=== PATIENT | male | born 1975 | race Caucasian/White ===

== ENCOUNTER 2018-06-04 23:31 | Inpatient (IN) ==
[2018-06-04] MEDS ORDERED: Acetaminophen 325 MG Tablet PO PRN (23:57)
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
[2018-06-05] MEDS ORDERED: ceFAZolin 2 GM Premix Inj 2 GM/50 ML PIGGYBACK IV.SIG ONE ×2 (00:11→09:39)
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
[2018-06-05] MEDS ORDERED: fentaNYL Citrate Inj 100 MCG/2 ML Ampul IV.PUSH ONE (03:46)
[2018-06-05] MEDS ORDERED: Chlorhexidine Gluconate 2% 1 Pack (2 Cloths) TOPICAL SCH ×2 (04:00→09:16)
[2018-06-05] MEDS ORDERED: Chlorhexidine Gluconate 2% 1 Pack (2 Cloths) TOPICAL PRN (04:00)
[2018-06-05] MEDS ORDERED: Metoprolol Tartrate 25 MG Tablet PO SCH (09:16)
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
[2018-06-05] MEDS ORDERED: Sodium Chlor 0.9% Inj 500 ML IV.SIG SCH (10:00)
[2018-06-05] MEDS ORDERED: Bupivacaine/Epinephrine PF Inj 0.5% 10 ML Vial ONE (10:09)
[2018-06-05] MEDS ORDERED: Propofol Inj 500 MG/50 ML Vial ONE (10:23)
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
[2018-06-05] MEDS ORDERED: Post-op Orders (for Pharmacy) OTHER STA (10:46)
--- NOTE | 2018-06-05 10:56 | P.OP ---
- Preoperative Diagnosis (1) Fracture of tibial plateau, closed (2) Distal radius fracture, right Date of procedure: 06/05/18 Procedure: Open reduction internal fixation intra-articular right distal radius fracture, closed reduction and external fixation left tibial plateau Anesthesia: GETA Surgeon: Vishal Vieira MD Medical Doctor Md: YURI Paul PA-C The surgical procedure was assisted by my physician materials assistant. My P.A. presence was necessary throughout this case for the manipulation and positioning of the surgical extremity. My P.A. was assisting me throughout the duration of this procedure. The skill set of a physician materials assistant was medically necessary to complete this procedure. During the surgical case the legal technician was working at the back table and the physician materials assistant was directly assisting me. Operation and Findings: Implants used: ITS distal radius plate, Orthofix external fixation Plan of activity: Nonweightbearing right arm and left leg Details of procedure: Patient was seen and evaluated preoperatively and found to have a displaced right distal radius fracture and comminuted left tibial plateau fracture. Patient had too much soft tissue swelling around his knee to proceed with definitive open reduction internal fixation. Informed consent was obtained after detailed discussion of risk and benefits including bleeding, infection, injury to arteries, nerves, and blood vessels, weakness and numbness of hand, and tendon rupture. Informed consent was obtained. Patient received IV antibiotics prior to incision. Timeout procedure was performed. Right arm and left leg were prepped with alcohol followed by Hibiclens and draped usual sterile fashion. A standard volar approach to the right distal radius was utilized. A 3 inch incision was made over the FCR tendon. Tendon sheath was opened. Pronator quadratus was elevated up. The fracture site was now visualized. The fracture did have intra-articular extension. Traction was applied. The articular surface was reduced. Fracture fragments were manipulated to achieve excellent reduction. K wires were used to hold provisional fixation. Fluoroscopy confirmed appropriate alignment of fracture. A variable angle distal radius plate was selected. Plate was provisionally fixed to bone with K wires. 2.7 and 2.4 cortical screws were used to compress plate to bone. Fluoroscopy confirmed appropriate alignment of fracture with well-placed hardware. Multiple 2.4 locking screws were now placed distally. Screws were predrilled and measured for appropriate length. 2 additional screws were placed into the shaft. K wires were removed. Final fluoroscopy revealed excellent of fracture with well-placed hardware. The wound was thoroughly irrigated with sterile saline. Subcutaneous tissue was closed with 3-0 Vicryl and skin was closed with 3-0 nylon. Sterile dressings were applied with Xeroform, 4 x 4, soft roll , and a well padded volar splint. Next attention was turned towards the left tibial plateau. Two small incisions were made along the anterior femur and the tibia. Soft tissue was dissected bluntly. Cannulas were placed down to the cortex of bone. Pin sites were predrilled. External fixation pins were placed into the femur and tibia. Fluoroscopy was used to confirm appropriate pin placement. An external fixator construct was now created with clamps and bars. Next attention was turned to reduction. Traction was applied. Fracture was manipulated. Good alignment of the fracture was obtained. Fluoroscopy was used to confirm appropriate alignment of fracture. The external fixator was now tightened to hold reduction. Sterile dressings were applied. Patient was transferred to recovery room in stable condition. Patient is scheduled for surgery on his right eye injury later today. The soft tissue was reevaluated. Patient did have swelling around the knee and calf but compartments were soft and compressible with no signs of compartment syndrome.
[2018-06-05] MEDS ORDERED: Propofol 1000 mg/100 ml Inj 1,000 MG/100 ML BOTTLE ONE (10:57)
--- NOTE | 2018-06-05 11:04 | XR ---
EXAM DATE: 06/05/2018 10:57 AM EST AGE/SEX: 42 years / Male INDICATIONS: Orif right wrist. CLINICAL DATA: This is the patient's subsequent encounter. Patient reports that signs and symptoms h ave been present for 2 days and indicates a pain score of Nonresponsive. MEDICAL/SURGICAL HISTORY: None. None. COMPARISON: No prior exams available for comparison. FINDINGS: Intraoperative examination demonstrates plating of the distal radial fracture. Alignment of the artic ular surface is good. There is no evidence of consultation. Note is made of an ulnar styloid fracture as well. CONCLUSION: Very good alignment of the patient's comminuted radial fracture post plating. Electronically signed by: Nilo Gaspar MD 06/05/2018 11:02 AM EST
[2018-06-05] MEDS ORDERED: fentaNYL Citrate Inj 100 MCG/2 ML Ampul ONE ×2 (11:19→14:44)
[2018-06-05] MEDS ORDERED: *morphine SULFATE 4 MG/ML PERIprocedure ONLY ONE ×2 (11:45→16:41)
[2018-06-05] MEDS ORDERED: Balanced Salt Opth Irrigation 15 APPLIC/15 ML Bottle ONE (11:56)
[2018-06-05] MEDS: Ketorolac Inj 30 MG/ML (IVP) Vial IV.PUSH SCH ×2 (12:00→20:55)
[2018-06-05] MEDS ORDERED: Lidocaine PF 1% Inj 5 ML Syringe INFILTRATN ONE (12:25)
[2018-06-05] MEDS ORDERED: Tobramycin/Dexamethasone Opth Drops 5 ML Bottle ONE (12:42)
[2018-06-05] MEDS ORDERED: Sugammadex Inj 200 MG/2 ML Vial IV.PUSH ONE (12:43)
--- NOTE | 2018-06-05 14:28 | P.OP ---
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 Patient was put under general anesthesia and prepped and draped in the usual sterile fashion for ophthalmic surgery. A wire lid speculum was placed in the right eye. The lateral conjunctiva had a hematoma so a conjunctival peritomy was done from 6 to 12 o'clock. The eye was noted to be soft but an obvious anterior rupture was not seen. The lateral rectus muscle was isolated and a 6-0 Vicryl suture was used to sharon the muscle and this was disconnected from the insertion. A 10 mm rupture was seen about 12 mm posterior to the muscle insertion. A 6-0 silk suture passed through the lateral cornea to provide traction. 7-0 Vicryl was used to close the laceration. The eye was reformed with Ocucoat and BSS. The wound was found to be watertight. The lateral rectus was reattached with the 6-0 Vicryl. The conjunctiva was closed with 7-0 Vicryl. Subconjunctival Decadron and Ancef were injected. Tobradex ointment, a patch, and shield were placed on the right eye. The patient was sent to PACU in stable condition.
--- NOTE | 2018-06-05 14:31 | P.PN ---
Subjective Interval history: s/p repair of ruptured globe OD. In PACU. Physical Exam Vital signs: Vital Signs 06/04/18 23:54 06/05/18 04:30 06/05/18 07:13 Temperature 98.4 F 98 F Pulse Rate 85 76 82 Respiratory Rate 18 15 20 Blood Pressure 135/90 128/66 132/89 Pulse Oximetry 97 98 06/05/18 11:00 06/05/18 11:10 06/05/18 11:15 Temperature 97.7 F 97.7 F Pulse Rate 67 69 Respiratory Rate 14 20 14 Blood Pressure 122/72 144/85 H Pulse Oximetry 100 100 100 06/05/18 11:30 06/05/18 11:45 06/05/18 12:00 Temperature 97.7 F 97.7 F 97.7 F Pulse Rate 68 66 66 Respiratory Rate 14 14 14 Blood Pressure 147/95 H 150/95 H 159/97 H Pulse Oximetry 100 100 100 Intake & Output 06/04/18 06/05/18 06/05/18 18:59 06:59 18:59 Intake Total 50 / 50 650 / 650 Output Total 1413 / 1413 Balance 50 / 50 -763 / -763 Weight 97.522 kg Intake: IV 50 / 50 250 / 250 LR 1000 mL Inj 1,000 ML @ 100 200 / 200 mls/hr IV.CONT .Q10H [facility] Rx#: [id number] Ancef 2 GM Premix Inj 2 gm In 50 / 50 50 / 50 50 ml @ 0 mls/hr IV.SIG .STK- MED ONE Rx#:[id number] Anesthesia Amount 400 / 400 Output: Estimated Blood Loss 63 / 63 Urine Amount (Catheter) 1350 / 1350 Indwelling Urethral Catheter 1350 / 1350 - Detailed Eye Exam Comments: Eye patch and shield over right eye - Urinary Catheter Management Indwelling Urethral Catheter Cath placed during this visit: yes Reason for continuing: Other continuation reason Insertion date: 06/05/18 Insertion time: 11:25 Results - Labs Laboratory Results - last 24 hr 06/05/18 11:13 POC Glucose 162 H - Imaging Impressions Knee CT 06/05/18 00:00 CONCLUSION: Shattered tibial plateau with relatively mild displacement of fragments Orbit CT 06/05/18 00:00 CONCLUSION: Scan appearance worrisome for rupture of the right globe Wrist X-Ray 06/05/18 00:00 CONCLUSION: Very good alignment of the patient's comminuted radial fracture post plating. 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 Keep patch on right eye. Will remove tomorrow morning.
[2018-06-05] MEDS ORDERED: ceFAZolin 1 GM Premix Inj 1 GM/50 ML FROZ.PIGGY IV.SIG ONE (14:45)
[2018-06-05] MEDS: Calcium/Vitamin D 250/125 MG Tablet PO SCH ×2 (16:21→17:21)
--- NOTE | 2018-06-05 16:35 | OTSOAPIP ---
RECEIVED OCCUPATIONAL THERAPY ORDER. PATIENT WAS OFF FLOOR FOR SURGERY. WILL FOLLOW UP WITH PATIENT NEXT DAY. INTERDISCIPLINARY COMMUNICATION: REVIEWED ELECTRONIC MEDICAL RECORD Therapist: Ann-Marie Torres OTR/Alysia Signature on file
[2018-06-05] MEDS ORDERED: Tobramycin/Dexamethasone Opth Drops 5 ML Bottle RIGHT EYE SCH (17:00)
[2018-06-05] MEDS ORDERED: ceFAZolin 2 GM Premix Inj 2 GM/50 ML PIGGYBACK IV.SIG SCH (18:00)
[2018-06-05] MEDS: Docusate Sodium 100 MG Capsule PO SCH ×2 (18:17→20:36)
[2018-06-05] MEDS: ceFAZolin 2 GM Premix Inj 2 GM/50 ML PIGGYBACK IV.SIG SCH (21:00)
[2018-06-06 04:34] LABS: Baso % (Auto) 0.1 % (0.0-2.0); Hematocrit 39.9 % (39.0-51.0); Hemoglobin 13.7 gm/dL (13.0-17.0); Lymph # (Auto) 0.7 th/mm3 (1.0-4.8); Lymph % (Auto) 9.4 % (9.0-44.0); Mean Corpuscular HGB Conc 34.3 % (32.0-36.0); Mean Corpuscular Hemoglobin 32.9 pg (27.0-34.0); Mean Corpuscular Volume 96.1 fL (80.0-100.0); Mean Platelet Volume 7.4 fL (7.0-11.0); Mono # (Auto) 0.7 th/mm3 (0.0-0.9); Mono % (Auto) 10.5 % (0.0-8.0); Neut # (Auto) 5.5 th/mm3 (1.8-7.7); Platelet Count 255 th/mm3 (150-450); Red Blood Count 4.16 mil/mm3 (4.50-5.90); Red Cell Distribution Width 13.1 % (11.6-17.2); White Blood Count 6.9 th/mm3 (4.0-11.0)
[2018-06-06 05:05] LABS: Calcium 8.6 mg/dL (8.5-10.1); Carbon Dioxide 30.1 meq/L (21.0-32.0); Potassium 4.1 meq/L (3.5-5.1)
[2018-06-06] MEDS: Ketorolac Inj 30 MG/ML (IVP) Vial IV.PUSH SCH ×3 (05:33→20:45)
[2018-06-06] MEDS: ceFAZolin 2 GM Premix Inj 2 GM/50 ML PIGGYBACK IV.SIG SCH ×2 (05:33→13:19)
--- NOTE | 2018-06-06 06:26 | P.PNOP ---
Subjective Interval history: POD 1 s/p ORIF right wrist s/p exfix left tibial plateau doing well. pain controlled. no new complaints Physical Exam Vital signs: Vital Signs 06/05/18 07:13 06/05/18 11:00 06/05/18 11:10 Temperature 98 F 97.7 F Pulse Rate 82 67 Respiratory Rate 20 14 20 Blood Pressure 132/89 122/72 Pulse Oximetry 98 100 100 06/05/18 11:15 06/05/18 11:30 06/05/18 11:45 Temperature 97.7 F 97.7 F 97.7 F Pulse Rate 69 68 66 Respiratory Rate 14 14 14 Blood Pressure 144/85 H 147/95 H 150/95 H Pulse Oximetry 100 100 100 06/05/18 12:00 06/05/18 14:30 06/05/18 15:03 Temperature 97.7 F 98 F 97.4 F L Pulse Rate 66 79 81 Respiratory Rate 14 18 14 Blood Pressure 159/97 H 152/88 H 159/83 H Pulse Oximetry 100 97 99 06/05/18 15:15 06/05/18 15:30 06/05/18 15:45 Temperature 98 F 98 F 98 F Pulse Rate 84 80 83 Respiratory Rate 18 18 18 Blood Pressure 159/90 H 140/78 156/89 H Pulse Oximetry 99 90 L 96 06/05/18 16:00 06/05/18 16:15 06/05/18 16:45 Temperature 98 F 98 F 98.2 F Pulse Rate 82 80 82 Respiratory Rate 18 18 14 Blood Pressure 158/91 H 160/93 H 166/95 H Pulse Oximetry 97 97 98 06/05/18 17:03 06/05/18 20:00 06/05/18 21:25 Temperature 98 F 97.9 F Pulse Rate 83 83 Respiratory Rate 18 17 17 Blood Pressure 166/97 H 142/77 H Pulse Oximetry 97 94 L 06/05/18 23:15 06/06/18 00:00 06/06/18 04:00 Temperature 97.4 F L 97.8 F Pulse Rate 73 77 Respiratory Rate 17 16 17 Blood Pressure 140/89 140/90 Pulse Oximetry 97 97 Intake & Output 06/05/18 06/05/18 06/06/18 06:59 18:59 06:59 Intake Total 50 / 50 650 / 650 100 / 100 Output Total 1963 / 1963 900 / 900 Balance 50 / 50 -1313 / -1313 -800 / -800 Weight 97.522 kg 97.5 kg 97.5 kg Intake: IV 50 / 50 250 / 250 100 / 100 LR 1000 mL Inj 1,000 ML @ 100 200 / 200 mls/hr IV.CONT .Q10H [facility] Rx#: [id number] Ancef 1 GM Premix Inj 1 gm In 50 / 50 50 ml @ 100 mls/hr IV.SIG ONCE ONE Rx#:[id number] Ancef 2 GM Premix Inj 2 gm In 50 / 50 50 / 50 50 / 50 50 ml @ 100 mls/hr IV.SIG Q8H [facility] Rx#:[id number] Oral 0 / 0 Anesthesia Amount 400 / 400 Output: Urine 550 / 550 900 / 900 Estimated Blood Loss 63 / 63 Urine Amount (Catheter) 1350 / 1350 Indwelling Urethral Catheter 1350 / 1350 Other: # Bowel Movements 0 Weight On Admission 97.5 kg Narrative: RUE: +short arm splint. intact. NVI LLE: 2+ swelling of lower leg. compartments soft. +exfix. pin sites clean. strong dorsiflexion - Urinary Catheter Management Indwelling Urethral Catheter Cath placed during this visit: yes Reason for continuing: Hourly intake/output Insertion date: 06/05/18 Insertion time: 11:25 Results - Labs CBC & Chem 7: 06/06/18 04:03 06/06/18 04:03 Laboratory Results - last 24 hr 06/05/18 06/06/18 06/06/18 11:13 04:03 04:03 WBC 6.9 RBC 4.16 L Hgb 13.7 Hct 39.9 MCV 96.1 MCH 32.9 MCHC 34.3 RDW 13.1 Plt Count 255 MPV 7.4 Neut % (Auto) 80.0 H Lymph % (Auto) 9.4 [place] % (Auto) 10.5 H Eos % (Auto) 0.0 Baso % (Auto) 0.1 Neut # (Auto) 5.5 Lymph # (Auto) 0.7 L [place] # (Auto) 0.7 Eos # (Auto) 0.0 Baso # (Auto) 0.0 WBC Differential . Differential Comment Auto diff final Sodium 139 Potassium 4.1 Chloride 100 Carbon Dioxide 30.1 Anion Gap 9 BUN 19 H Creatinine 1.17 Estimated GFR 68 L POC Glucose 162 H Random Glucose 151 H Calcium 8.6 - Imaging Impressions Wrist X-Ray 06/05/18 00:00 CONCLUSION: Very good alignment of the patient's comminuted radial fracture post plating. Assessment and Plan - Assessment and Plan 1) Right Distal Radius Fx s/p ORIF - POD 1 -maintain splint at all times -NWB to hand and wrist -ok for platform walker 2) Left Bicondylar Tibial Plateau Fx s/p Exfix -NWB -elevate -ice -toradol -will plan for ORIF once swelling appropriate. will not likely be til next week
--- NOTE | 2018-06-06 08:48 | P.PN ---
Subjective Interval history: No pain in right eye. Comfortable overnight. Physical Exam Vital signs: Vital Signs 06/05/18 11:00 06/05/18 11:10 06/05/18 11:15 Temperature 97.7 F 97.7 F Pulse Rate 67 69 Respiratory Rate 14 20 14 Blood Pressure 122/72 144/85 H Pulse Oximetry 100 100 100 06/05/18 11:30 06/05/18 11:45 06/05/18 12:00 Temperature 97.7 F 97.7 F 97.7 F Pulse Rate 68 66 66 Respiratory Rate 14 14 14 Blood Pressure 147/95 H 150/95 H 159/97 H Pulse Oximetry 100 100 100 06/05/18 14:30 06/05/18 15:03 06/05/18 15:15 Temperature 98 F 97.4 F L 98 F Pulse Rate 79 81 84 Respiratory Rate 18 14 18 Blood Pressure 152/88 H 159/83 H 159/90 H Pulse Oximetry 97 99 99 06/05/18 15:30 06/05/18 15:45 06/05/18 16:00 Temperature 98 F 98 F 98 F Pulse Rate 80 83 82 Respiratory Rate 18 18 18 Blood Pressure 140/78 156/89 H 158/91 H Pulse Oximetry 90 L 96 97 06/05/18 16:15 06/05/18 16:45 06/05/18 17:03 Temperature 98 F 98.2 F 98 F Pulse Rate 80 82 83 Respiratory Rate 18 14 18 Blood Pressure 160/93 H 166/95 H 166/97 H Pulse Oximetry 97 98 97 06/05/18 20:00 06/05/18 21:25 06/05/18 23:15 Temperature 97.9 F Pulse Rate 83 Respiratory Rate 17 17 17 Blood Pressure 142/77 H Pulse Oximetry 94 L 06/06/18 00:00 06/06/18 04:00 Temperature 97.4 F L 97.8 F Pulse Rate 73 77 Respiratory Rate 16 17 Blood Pressure 140/89 140/90 Pulse Oximetry 97 97 Intake & Output 06/05/18 06/06/18 06/06/18 18:59 06:59 18:59 Intake Total 650 / 650 150 / 150 Output Total 1963 / 1963 900 / 900 Balance -1313 / -1313 -750 / -750 Weight 97.5 kg 97.5 kg Intake: IV 250 / 250 150 / 150 LR 1000 mL Inj 1,000 ML @ 100 200 / 200 mls/hr IV.CONT .Q10H [facility] Rx#: [id number] Ancef 1 GM Premix Inj 1 gm In 50 / 50 50 ml @ 100 mls/hr IV.SIG ONCE ONE Rx#:[id number] Ancef 2 GM Premix Inj 2 gm In 50 / 50 100 / 100 50 ml @ 100 mls/hr IV.SIG Q8H [facility] Rx#:[id number] Oral 0 / 0 Anesthesia Amount 400 / 400 Output: Urine 550 / 550 900 / 900 Estimated Blood Loss 63 / 63 Urine Amount (Catheter) 1350 / 1350 Indwelling Urethral Catheter 1350 / 1350 Other: # Bowel Movements 0 Weight On Admission 97.5 kg - Detailed Eye Exam Comments: Va cc at near OD CF 6 in, OS 20/20 EOM full OU, no diplopia CVF full OS, unable OD Pupils 2-1 OS, 4 mm fixed OD IOP deferred Anterior exam OD - eyelid edema and ecchymoses, conj sutures intact, K clear, AC deep, pupil round, lens clear OS - normal eyelid, C/S W&Q, K clear, AC deep, pupil round, lens clear - Urinary Catheter Management Indwelling Urethral Catheter Cath placed during this visit: yes Reason for continuing: Hourly intake/output Insertion date: 06/05/18 Insertion time: 11:25 Results - Labs CBC & Chem 7: 06/06/18 04:03 06/06/18 04:03 Laboratory Results - last 24 hr 06/05/18 06/06/18 06/06/18 11:13 04:03 04:03 WBC 6.9 RBC 4.16 L Hgb 13.7 Hct 39.9 MCV 96.1 MCH 32.9 MCHC 34.3 RDW 13.1 Plt Count 255 MPV 7.4 Neut % (Auto) 80.0 H Lymph % (Auto) 9.4 [place] % (Auto) 10.5 H Eos % (Auto) 0.0 Baso % (Auto) 0.1 Neut # (Auto) 5.5 Lymph # (Auto) 0.7 L [place] # (Auto) 0.7 Eos # (Auto) 0.0 Baso # (Auto) 0.0 WBC Differential . Differential Comment Auto diff final Sodium 139 Potassium 4.1 Chloride 100 Carbon Dioxide 30.1 Anion Gap 9 BUN 19 H Creatinine 1.17 Estimated GFR 68 L POC Glucose 162 H Random Glucose 151 H Calcium 8.6 - Imaging Impressions Wrist X-Ray 06/05/18 00:00 CONCLUSION: Very good alignment of the patient's comminuted radial fracture post plating. 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 Start Prednisolone acetate 1% QID OD, Vigamox QID OD. Discussed poor prognosis of recovering full vision with posterior rupture. Follow up as outpatient once discharged. 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
--- NOTE | 2018-06-06 09:12 | XR ---
EXAM DATE: 06/05/2018 12:28 PM EST AGE/SEX: 42 years / Male INDICATIONS: EX Fix placement left knee. CLINICAL DATA: This is the patient's subsequent encounter. Patient reports that signs and symptoms h ave been present for 2 days and indicates a pain score of Nonresponsive. MEDICAL/SURGICAL HISTORY: None. None. COMPARISON: No prior exams available for comparison. FINDINGS: 2 intraoperative spot images of the left knee. Tibial plateau fracture is identified involving the me dial and lateral tibial condyles. CONCLUSION: Tibial plateau fracture identified. Electronically signed by: Adán Gamboa MD 06/06/2018 9:10 AM EST
[2018-06-06] MEDS: guanFACINE 2 MG 24HR ER Tablet PO SCH (10:00)
[2018-06-06] MEDS: Calcium/Vitamin D 250/125 MG Tablet PO SCH ×3 (10:00→18:49)
[2018-06-06] MEDS: Citalopram 20 MG Tablet PO SCH (10:00)
[2018-06-06] MEDS: Enoxaparin Inj 40 MG/0.4 ML Syringe SQ SCH (10:00)
[2018-06-06] MEDS: Fenofibrate 48 MG Tablet PO SCH (10:01)
[2018-06-06] MEDS: Docusate Sodium 100 MG Capsule PO SCH ×2 (10:01→20:44)
[2018-06-06] MEDS: prednisoLONE Acetate 1% Opth Susp 5 ML Bottle RIGHT EYE SCH ×4 (11:00→20:49)
[2018-06-06] MEDS: Moxifloxacin 0.5% Opth Drops 3 ML Bottle RIGHT EYE SCH ×4 (11:00→20:49)
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
[2018-06-07] MEDS: Ketorolac Inj 30 MG/ML (IVP) Vial IV.PUSH SCH (04:45)
--- NOTE | 2018-06-07 07:28 | P.DCO ---
- Physical Therapy Order: Evaluate and treat, Improve ambulation, Strength and gait training - Home Health Nursing Order: Medical education, Signs/symptoms of disease process, Medication education-adverse effect, Nursing assessment with vital signs - Case Management Consult Yes - Certification I have seen patient Slim Forde on 06/07/18. My clinical findings support the need for the requested home health care services because: Limited mobility due to disease progression, Deconditioned with increased weakness, Limited ability to care for self, High risk of falls I certify that my clinical findings support that this patient is homebound because: Post-op weakness, Unsteady gait/balance, Unsafe to leave home unassisted, Non- ambulatory: confined to bed or chair, Unable to use public transportation
--- NOTE | 2018-06-07 07:57 | P.PNOP ---
Subjective Interval history: Resting comfortably with no new complaints Physical Exam Vital signs: Vital Signs 06/06/18 08:00 06/06/18 09:45 06/06/18 12:00 Temperature 98.5 F 98.2 F Pulse Rate 78 82 Respiratory Rate 18 18 Blood Pressure 148/89 H 134/79 Pulse Oximetry 100 98 98 06/06/18 16:00 06/06/18 16:30 06/06/18 20:15 Temperature 98.7 F 98.9 F 98.5 F Pulse Rate 84 81 74 Respiratory Rate 16 18 19 Blood Pressure 109/61 125/72 126/64 Pulse Oximetry 96 97 98 06/06/18 21:25 06/07/18 00:00 06/07/18 04:00 Temperature 98.3 F 98.4 F Pulse Rate 82 72 Respiratory Rate 18 18 18 Blood Pressure 128/69 128/74 Pulse Oximetry 94 L 95 06/07/18 04:44 Temperature Pulse Rate Respiratory Rate 18 Blood Pressure Pulse Oximetry Intake & Output 06/06/18 06/07/18 06/07/18 18:59 06:59 18:59 Intake Total 150 / 150 Output Total 1100 / 1100 625 / 625 Balance -1100 / -1100 -625 / -625 150 / 150 Intake: IV 150 / 150 Output: Urine 600 / 600 625 / 625 Urine Amount (Catheter) 500 / 500 Indwelling Urethral Catheter 500 / 500 Other: Date of Last Bowel Movement 06/06/18 Narrative: Right upper extremity: No pain with shoulder elbow range of motion. Short arm volar splint in place. Intact sensation over the radial ulnar median nerve full extension and flexion of all fingers. He has good capillary refills. Left lower extremity: No pain with hip range of motion. External fixation in place. Pin sites clean and dry. Swelling has improved slightly. Still continues have swelling of +3. He has intact sensation distally with active dorsiflexion plantarflexion of foot. Negative Homans sign - Urinary Catheter Management Indwelling Urethral Catheter Cath placed during this visit: yes, but has since been removed by the nurse Reason for continuing: Not indwelling catheter Insertion date: 06/05/18 Insertion time: 11:25 Removal date: 06/06/18 Removal time: 13:43 Results - Labs CBC & Chem 7: 06/06/18 04:03 06/06/18 04:03 - Imaging Impressions Knee X-Ray 06/05/18 00:00 CONCLUSION: Tibial plateau fracture identified. Assessment and Plan - Assessment and Plan 1) Right Distal Radius Fx s/p ORIF - POD 2 -maintain splint at all times -NWB to hand and wrist -ok for platform walker 2) Left Bicondylar Tibial Plateau Fx s/p Exfix -NWB -elevate -ice -toradol -N.p.o. after midnight on Sunday night. If swelling has improved potential surgery on Sunday. Hold Lovenox after Sunday's dose. Pin care twice daily
[2018-06-07] MEDS: Enoxaparin Inj 40 MG/0.4 ML Syringe SQ SCH (09:28)
[2018-06-07] MEDS: Citalopram 20 MG Tablet PO SCH (09:30)
[2018-06-07] MEDS: Calcium/Vitamin D 250/125 MG Tablet PO SCH ×3 (09:30→17:49)
[2018-06-07] MEDS: Docusate Sodium 100 MG Capsule PO SCH ×2 (09:30→22:04)
[2018-06-07] MEDS: Moxifloxacin 0.5% Opth Drops 3 ML Bottle RIGHT EYE SCH ×4 (09:37→22:03)
[2018-06-07] MEDS: prednisoLONE Acetate 1% Opth Susp 5 ML Bottle RIGHT EYE SCH ×4 (09:37→22:03)
[2018-06-07] MEDS: guanFACINE 2 MG 24HR ER Tablet PO SCH (11:36)
[2018-06-07] MEDS: Fenofibrate 48 MG Tablet PO SCH (11:37)
--- NOTE | 2018-06-07 11:40 | P.PN ---
Subjective Interval history: Right eye is comfortable. A little scratchy when he blinks. It gets matted shut , especially in the mornings. Physical Exam Vital signs: Vital Signs 06/06/18 12:00 06/06/18 16:00 06/06/18 16:30 Temperature 98.2 F 98.7 F 98.9 F Pulse Rate 82 84 81 Respiratory Rate 18 16 18 Blood Pressure 134/79 109/61 125/72 Pulse Oximetry 98 96 97 06/06/18 20:15 06/06/18 21:25 06/07/18 00:00 Temperature 98.5 F 98.3 F Pulse Rate 74 82 Respiratory Rate 19 18 18 Blood Pressure 126/64 128/69 Pulse Oximetry 98 94 L 06/07/18 04:00 06/07/18 04:44 06/07/18 08:00 Temperature 98.4 F 97.9 F Pulse Rate 72 66 Respiratory Rate 18 18 20 Blood Pressure 128/74 142/88 H Pulse Oximetry 95 98 06/07/18 11:37 Temperature Pulse Rate Respiratory Rate 16 Blood Pressure Pulse Oximetry Intake & Output 06/06/18 06/07/18 06/07/18 18:59 06:59 18:59 Intake Total 150 / 150 Output Total 1100 / 1100 625 / 625 Balance -1100 / -1100 -625 / -625 150 / 150 Intake: IV 150 / 150 Output: Urine 600 / 600 625 / 625 Urine Amount (Catheter) 500 / 500 Indwelling Urethral Catheter 500 / 500 Other: Date of Last Bowel Movement 06/06/18 06/06/18 - Detailed Eye Exam Comments: Va sc at near OD 20/400, OS 20/20 EOM full OU, no diplopia CVF full OS Pupils 3-2, 2-1 IOP 6 OD, 15 OS Anterior exam OD - eyelid edema and ecchymoses, conj sutures temporally, K clear, AC deep, pupil round, lens clear OS - normal eyelid, C/S W&Q, K clear, AC deep, pupil round, lens clear - Urinary Catheter Management Indwelling Urethral Catheter Cath placed during this visit: yes, but has since been removed by the nurse Reason for continuing: Acute urinary retention Insertion date: 06/07/18 Insertion time: 10:53 Removal date: 06/06/18 Removal time: 13:43 Results - Labs CBC & Chem 7: 06/06/18 04:03 06/06/18 04:03 Assessment and Plan - Assessment (1) Ruptured globe of right eye with uveal prolapse Code(s): S05.21XA - Ocular laceration and rupture with prolapse or loss of intraocular tissue, right eye, initial encounter Status: Acute Plan: 2 days s/p repair of ruptured globe. Cont Prednisolone acetate 1% QID OD, Vigamox QID OD. Discussed poor prognosis of recovering full vision with posterior rupture. 

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
[2018-06-07] MEDS ORDERED: Dextrose 50% in Water 50 ML Vial IV.PUSH PRN (13:53)
[2018-06-07] MEDS: Ibuprofen 400 MG Tablet PO SCH ×2 (14:54→23:01)
[2018-06-07] MEDS: Insulin NovoLOG Aspart Correctional Sugar Inj SQ SCH ×2 (17:49→22:04)
[2018-06-07] MEDS ORDERED: VASCEPA 1 GM PO SCH (21:00)
[2018-06-08] MEDS ORDERED: Bisacodyl 10 MG Supp RECTAL PRN (04:41)
--- NOTE | 2018-06-08 07:01 | P.PNOP ---
Subjective Interval history: POd 3 s/p ORIF right wrist s/p exfix left tibial pateau doing well. no changes Physical Exam Vital signs: Vital Signs 06/07/18 08:00 06/07/18 11:37 06/07/18 12:00 Temperature 97.9 F 97.7 F Pulse Rate 66 83 Respiratory Rate 20 16 22 Blood Pressure 142/88 H 137/78 Pulse Oximetry 98 95 06/07/18 14:54 06/07/18 15:58 06/07/18 16:00 Temperature 98.6 F Pulse Rate 79 Respiratory Rate 16 16 20 Blood Pressure 144/83 H Pulse Oximetry 96 06/07/18 18:31 06/07/18 19:13 06/08/18 00:08 Temperature 98.0 F 97.3 F L Pulse Rate 82 80 Respiratory Rate 16 18 18 Blood Pressure 126/67 143/81 H Pulse Oximetry 94 L 93 L 06/08/18 04:28 Temperature 97.8 F Pulse Rate 76 Respiratory Rate 18 Blood Pressure 148/80 H Pulse Oximetry 96 Intake & Output 06/07/18 06/08/18 06/08/18 18:59 06:59 18:59 Intake Total 2490 / 2490 720 / 720 Output Total 3000 / 3000 600 / 600 Balance -510 / -510 120 / 120 Weight 107.4 kg Intake: IV 1150 / 1150 Oral 1340 / 1340 720 / 720 Output: Urine 900 / 900 Stool 0 / 0 Urine Amount (Catheter) 2100 / 2100 600 / 600 Indwelling Urethral Catheter 2100 / 2100 600 / 600 Other: Date of Last Bowel Movement 06/06/18 06/06/18 # Bowel Movements 0 Narrative: LLE; 2+ swelling. compartments soft. nvi. +exfix. pin sites clean RUE: +short arm splint. intact. nvi - Urinary Catheter Management Indwelling Urethral Catheter Cath placed during this visit: yes, but has since been removed by the nurse Reason for continuing: Acute urinary retention Insertion date: 06/07/18 Insertion time: 10:53 Removal date: 06/06/18 Removal time: 13:43 Results - Labs CBC & Chem 7: 06/06/18 04:03 06/06/18 04:03 Laboratory Results - last 24 hr 06/07/18 06/07/18 17:28 20:48 POC Glucose 170 H 177 H Assessment and Plan - Assessment and Plan 1) Right Distal Radius Fx s/p ORIF - POD 3 -maintain splint at all times -NWB to hand and wrist -ok for platform walker 2) Left Bicondylar Tibial Plateau Fx s/p Exfix -NWB -elevate -ice -toradol -N.p.o. after midnight on Sunday night. If swelling has improved potential surgery on Sunday. Hold Lovenox after Sunday's dose. Pin care twice daily
[2018-06-08] MEDS: Ibuprofen 400 MG Tablet PO SCH ×3 (07:41→23:31)
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
[2018-06-08] MEDS ORDERED: Non-Formulary Drug (Losartan-Hydrochlorothiazide [Losartan-Hydrochlorothiazide] 1 TAB) PO SCH (09:00)
[2018-06-08] MEDS ORDERED: GUANFACINE 4 MG PO SCH (09:00)
[2018-06-08] MEDS: Docusate Sodium 100 MG Capsule PO SCH ×2 (09:17→20:22)
[2018-06-08] MEDS: Citalopram 20 MG Tablet PO SCH (09:17)
[2018-06-08] MEDS: Fenofibrate 145 MG Tablet PO SCH (09:17)
[2018-06-08] MEDS: Enoxaparin Inj 40 MG/0.4 ML Syringe SQ SCH (09:18)
[2018-06-08] MEDS: prednisoLONE Acetate 1% Opth Susp 5 ML Bottle RIGHT EYE SCH ×4 (09:18→21:55)
[2018-06-08] MEDS: Calcium/Vitamin D 250/125 MG Tablet PO SCH ×3 (09:18→18:56)
[2018-06-08] MEDS: Insulin NovoLOG Aspart Correctional Sugar Inj SQ SCH ×4 (09:19→20:24)
[2018-06-08] MEDS: Moxifloxacin 0.5% Opth Drops 3 ML Bottle RIGHT EYE SCH ×3 (13:03→21:55)
[2018-06-09] MEDS: Ibuprofen 400 MG Tablet PO SCH ×3 (06:37→21:04)
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
[2018-06-09] MEDS: Calcium/Vitamin D 250/125 MG Tablet PO SCH ×3 (09:07→19:04)
[2018-06-09] MEDS: Citalopram 20 MG Tablet PO SCH (09:07)
[2018-06-09] MEDS: Docusate Sodium 100 MG Capsule PO SCH ×2 (09:07→21:05)
[2018-06-09] MEDS: Insulin NovoLOG Aspart Correctional Sugar Inj SQ SCH ×4 (09:49→22:55)
[2018-06-09] MEDS: prednisoLONE Acetate 1% Opth Susp 5 ML Bottle RIGHT EYE SCH ×4 (09:51→21:04)
[2018-06-09] MEDS: Moxifloxacin 0.5% Opth Drops 3 ML Bottle RIGHT EYE SCH ×4 (09:51→21:04)
[2018-06-09] MEDS ORDERED: Bisacodyl 10 MG Supp RECTAL ONE (10:39)
[2018-06-09] MEDS: Enoxaparin Inj 40 MG/0.4 ML Syringe SQ SCH (11:30)
[2018-06-09] MEDS: Fenofibrate 145 MG Tablet PO SCH (12:27)
[2018-06-10] MEDS ORDERED: Sodium Chlor 0.9% Inj 500 ML IV.CONT ONE (05:15)
[2018-06-10] MEDS ORDERED: Chlorhexidine Gluconate 2% 1 Pack (2 Cloths) TOPICAL ONE (05:15)
[2018-06-10] MEDS: Ibuprofen 400 MG Tablet PO SCH ×3 (06:19→23:53)
--- NOTE | 2018-06-10 06:30 | P.PNOP ---
Subjective Interval history: POD 5 s/p ORIF right wrist POD 5 s/p exfix left knee doing well. no changes. improving Physical Exam Vital signs: Vital Signs 06/09/18 08:00 06/09/18 09:09 06/09/18 12:00 Temperature 98.1 F 97.9 F Pulse Rate 72 88 79 Respiratory Rate 16 18 Blood Pressure 173/109 H 162/92 H 158/97 H Pulse Oximetry 97 95 06/09/18 16:00 06/09/18 20:00 06/10/18 00:00 Temperature 97.6 F 98.1 F 97.8 F Pulse Rate 75 82 82 Respiratory Rate 18 18 18 Blood Pressure 152/98 H 146/91 H 140/78 Pulse Oximetry 95 95 93 L Intake & Output 06/09/18 06/09/18 06/10/18 06:59 18:59 06:59 Intake Total 680 / 680 480 / 480 320 / 320 Output Total 3300 / 3300 1200 / 1200 Balance -2620 / -2620 -720 / -720 320 / 320 Weight 108.2 kg 106.3 kg Intake: Oral 680 / 680 480 / 480 320 / 320 Output: Urine 3300 / 3300 1200 / 1200 Other: # Voids 1,300 Date of Last Bowel Movement 06/06/18 06/06/18 06/09/18 # Bowel Movements 2 Narrative: LLE: +exfix. pin sites clean. swelling 1+ and improving. compartments soft RUE: +splint. intact. nvi - Urinary Catheter Management Indwelling Urethral Catheter Cath placed during this visit: yes, but has since been removed by the nurse Reason for continuing: Acute urinary retention Insertion date: 06/07/18 Insertion time: 10:53 Removal date: 06/06/18 Removal time: 13:43 Results - Labs CBC & Chem 7: 06/06/18 04:03 06/06/18 04:03 Laboratory Results - last 24 hr 06/09/18 06/09/18 06/09/18 09:48 12:03 17:19 POC Glucose 192 H 154 H 127 H 06/09/18 21:14 POC Glucose 175 H Assessment and Plan - Assessment and Plan 1) Right Distal Radius Fx s/p ORIF - POD 5 -maintain splint at all times -NWB to hand and wrist -ok for platform walker 2) Left Bicondylar Tibial Plateau Fx s/p Exfix -NWB -elevate -ice -toradol -resume diet today -NPO after MN -one time dose of lovenox this AM -plan for surgery tomorrow
[2018-06-10] MEDS ORDERED: Enoxaparin Inj 30 MG/0.3 ML Syringe SQ ONE (06:31)
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
[2018-06-10] MEDS: Fenofibrate 145 MG Tablet PO SCH (08:22)
[2018-06-10] MEDS: Docusate Sodium 100 MG Capsule PO SCH ×2 (08:22→20:51)
[2018-06-10] MEDS: Calcium/Vitamin D 250/125 MG Tablet PO SCH ×3 (08:22→17:05)
[2018-06-10] MEDS: Citalopram 20 MG Tablet PO SCH (08:22)
[2018-06-10] MEDS: Moxifloxacin 0.5% Opth Drops 3 ML Bottle RIGHT EYE SCH ×4 (08:30→20:53)
[2018-06-10] MEDS: prednisoLONE Acetate 1% Opth Susp 5 ML Bottle RIGHT EYE SCH ×4 (08:30→20:53)
[2018-06-10] MEDS: Insulin NovoLOG Aspart Correctional Sugar Inj SQ SCH ×4 (08:33→20:54)
[2018-06-10] MEDS: Gabapentin 300 MG Capsule PO SCH ×2 (12:49→17:05)
[2018-06-11] MEDS: Ibuprofen 400 MG Tablet PO SCH ×3 (05:00→23:03)
[2018-06-11 05:44] LABS: Baso % (Auto) 0.4 % (0.0-2.0); Eos # (Auto) 0.1 th/mm3 (0.0-0.4); Eos % (Auto) 2.9 % (0.0-4.0); Hematocrit 36.7 % (39.0-51.0); Hemoglobin 12.7 gm/dL (13.0-17.0); Lymph # (Auto) 1.3 th/mm3 (1.0-4.8); Lymph % (Auto) 30.2 % (9.0-44.0); Mean Corpuscular HGB Conc 34.7 % (32.0-36.0); Mean Corpuscular Hemoglobin 32.8 pg (27.0-34.0); Mean Corpuscular Volume 94.5 fL (80.0-100.0); Mean Platelet Volume 6.8 fL (7.0-11.0); Mono # (Auto) 0.5 th/mm3 (0.0-0.9); Mono % (Auto) 12.2 % (0.0-8.0); Neut # (Auto) 2.3 th/mm3 (1.8-7.7); Neut % (Auto) 54.3 % (16.0-70.0); Platelet Count 284 th/mm3 (150-450); Red Blood Count 3.88 mil/mm3 (4.50-5.90); Red Cell Distribution Width 12.5 % (11.6-17.2); White Blood Count 4.3 th/mm3 (4.0-11.0)
[2018-06-11 06:08] LABS: Calcium 8.8 mg/dL (8.5-10.1); Carbon Dioxide 30.3 meq/L (21.0-32.0); Potassium 3.7 meq/L (3.5-5.1)
--- NOTE | 2018-06-11 06:48 | P.PNOP ---
Subjective Interval history: POD 7 s/p ORIF right wrist s/p exfix left plateau doing well. pain controlled. Physical Exam Vital signs: Vital Signs 06/10/18 08:00 06/10/18 12:00 06/10/18 16:00 Temperature 97.9 F 98.1 F 97.9 F Pulse Rate 79 78 86 Respiratory Rate 18 18 Blood Pressure 153/96 H 154/98 H 127/89 Pulse Oximetry 94 L 94 L 95 06/10/18 21:10 06/11/18 00:40 06/11/18 05:20 Temperature 97.8 F 98.1 F 97.8 F Pulse Rate 91 H 78 77 Respiratory Rate 18 18 Blood Pressure 138/87 140/89 133/83 Pulse Oximetry 94 L 97 94 L Intake & Output 06/10/18 06/10/18 06/11/18 06:59 18:59 06:59 Intake Total 320 / 320 620 / 620 Output Total 700 / 700 Balance 320 / 320 -80 / -80 Weight 106.3 kg Intake: Oral 320 / 320 620 / 620 Output: Urine 700 / 700 Other: # Voids 1,300 Date of Last Bowel Movement 06/09/18 06/09/18 Narrative: LLE: 1-2+ swelling. compartments soft. +exfix RLE: +splint. intact. - Urinary Catheter Management Indwelling Urethral Catheter Cath placed during this visit: yes, but has since been removed by the nurse Reason for continuing: Acute urinary retention Insertion date: 06/07/18 Insertion time: 10:53 Removal date: 06/06/18 Removal time: 13:43 Results - Labs CBC & Chem 7: 06/11/18 05:09 06/11/18 05:09 Laboratory Results - last 24 hr 06/10/18 06/10/18 06/10/18 08:04 12:05 17:09 WBC RBC Hgb Hct MCV MCH MCHC RDW Plt Count MPV Neut % (Auto) Lymph % (Auto) Worth % (Auto) Eos % (Auto) Baso % (Auto) Neut # (Auto) Lymph # (Auto) Worth # (Auto) Eos # (Auto) Baso # (Auto) WBC Differential Differential Comment Sodium Potassium Chloride Carbon Dioxide Anion Gap BUN Creatinine Estimated GFR POC Glucose 124 H 170 H 132 H Random Glucose Calcium 06/10/18 06/11/1818 20:02 05:09 05:09 WBC 4.3 RBC 3.88 L Hgb 12.7 L Hct 36.7 L MCV 94.5 MCH 32.8 MCHC 34.7 RDW 12.5 Plt Count 284 MPV 6.8 L Neut % (Auto) 54.3 Lymph % (Auto) 30.2 Worth % (Auto) 12.2 H Eos % (Auto) 2.9 Baso % (Auto) 0.4 Neut # (Auto) 2.3 Lymph # (Auto) 1.3 Worth # (Auto) 0.5 Eos # (Auto) 0.1 Baso # (Auto) 0.0 WBC Differential . Differential Comment Auto diff final Sodium 139 Potassium 3.7 Chloride 99 Carbon Dioxide 30.3 Anion Gap 10 BUN 22 H Creatinine 1.07 Estimated GFR 75 L POC Glucose 170 H Random Glucose 116 H Calcium 8.8 Assessment and Plan - Assessment and Plan 1) Right Distal Radius Fx s/p ORIF - POD 6 -maintain splint at all times -NWB to hand and wrist -ok for platform walker 2) Left Bicondylar Tibial Plateau Fx s/p Exfix -NWB -elevate -ice -surgery today with [facility] -sign consents
[2018-06-11] MEDS: Insulin NovoLOG Aspart Correctional Sugar Inj SQ SCH ×4 (08:00→20:02)
[2018-06-11] MEDS: prednisoLONE Acetate 1% Opth Susp 5 ML Bottle RIGHT EYE SCH ×4 (09:00→20:05)
[2018-06-11] MEDS: Moxifloxacin 0.5% Opth Drops 3 ML Bottle RIGHT EYE SCH ×4 (09:00→20:05)
[2018-06-11] MEDS: Fenofibrate 145 MG Tablet PO SCH (09:00)
[2018-06-11] MEDS: Calcium/Vitamin D 250/125 MG Tablet PO SCH ×3 (09:00→17:01)
[2018-06-11] MEDS ORDERED: Lidocaine PF 1% Inj 5 ML Syringe OTHER ONE ×2 (09:02)
[2018-06-11] MEDS ORDERED: ceFAZolin 2 GM Premix Inj 2 GM/50 ML PIGGYBACK IV.SIG ONE (09:13)
[2018-06-11] MEDS: Docusate Sodium 100 MG Capsule PO SCH ×2 (09:16→20:02)
[2018-06-11] MEDS: Citalopram 20 MG Tablet PO SCH (09:16)
[2018-06-11] MEDS: Gabapentin 300 MG Capsule PO SCH ×3 (09:17→17:01)
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
[2018-06-11] MEDS ORDERED: Post-op Orders (for Pharmacy) OTHER STA (11:22)
--- NOTE | 2018-06-11 11:29 | P.OP ---
Date of procedure: 06/11/18 Procedure: Open reduction internal fixation left bicondylar tibial plateau fracture, removal of external fixation Anesthesia: GETA Surgeon: Vishal Vieira MD Brick Veneer Maker: YURI Paul PA-C The surgical procedure was assisted by my physician drug safety assistant. My P.A. presence was necessary throughout this case for the manipulation and positioning of the surgical extremity. My P.A. was assisting me throughout the duration of this procedure. The skill set of a physician drug safety assistant was medically necessary to complete this procedure. During the surgical case the surgical oncologist was working at the back table and the physician drug safety assistant was directly assisting me. Operation and Findings: Implants used: Biomet lateral tibia plateau plate, ITS medial tibia plateau plate Plan of activity: Nonweightbearing, passive range of motion of left knee Details of procedure: This patient was seen and evaluated preoperatively. Patient sustained an injury resulting a bicondylar tibial plateau fracture. Informed consent was obtained preoperatively after detailed discussion of the risks and benefits of surgery. Risk of surgery including bleeding, infection, nonunion, painful hardware, stiffness, loss of motion, arthritis, need for knee replacement, as well as medical complications including blood clots, stroke, heart attack, and were discussed. I also discussed the possibility of using allograft bone graft . Preoperatively the operative site was marked. Patient was brought to the operating room and placed on the operating room table. Intravenous sedation and general endotracheal anesthesia were administered. IV antibiotics were given and a time out procedure was preformed. Procedure began with removal of the external fixator. Clamps were loosened. Bars and clamps were now removed. The pins were left in place. Next,the operative leg was prepped with alcohol followed by Hibiclens and draped in the usual sterile fashion. Attention was now turned towards the medial tibial plateau. A 5 inch incision was made over the posterior medial aspect of the tibial plateau. Saphenous vein was protected. The PES insertion was elevated to expose the posterior medial tibial plateau. Fracture was visualized. Attention was now turned toward reduction. Traction was applied. A distractor frame was now placed across the fracture site to help in the plate fracture. Fracture was manipulated. Fracture keyed in excellent alignment. A fracture tenaculum was used to compress fracture. K wires were used for provisional fixation. Fluoroscopy confirmed excellent alignment of fracture. A plate was now placed along the posterior medial tibial plateau. Plate was provisionally held to bone with K wires. Fluoroscopy confirmed plate placement. 3.5 cortical screws were used to compress plate to bone. Additional locking screws were placed proximally. Next a 4-inch curvilinear incision over the anterolateral knee. Subcutaneous tissue was treated with Bovie. Iliotibial band was split in line with fibers. A sub-meniscal arthrotomy was created and the lateral articular surface was visualized. There was significant comminution and depression of the articular surface. A window was made in the metaphyseal region and bone tamps used to elevate the articular surface. Articular surface reduced into excellent alignment. K-wires were used for provisional fixation. At this point cancellous bone graft was packed under the articular surface using a bone tamp. The cortical fragments were now reduced. Fluoroscopy revealed excellent alignment of fracture. A lateral proximal tibial plate was selected. The plate was provisionally held with K-wires. 3.5 cortical screws were used compress plate to bone distally, and a periarticular clamp was used to compress the medial and lateral tibial plateau fracture fragments together. Multiple locking screws were now placed proximally. Additional screws were placed in the shaft. K-wires were removed. Final fluoroscopy showed excellent alignment of fracture with well-placed hardware. The incision was thoroughly irrigated. Attention was now returned back to the medial plate. Additional locking screws were placed proximally within the plate. All screws were predrilled and premeasured for appropriate length. Incisions were thoroughly irrigated. Attention was now turned to closure. Fascia and iliotibial band were closed with #1 Vicryl,. Subcutaneous tissues closed with 3-0 Vicryl and skin was closed with nury. Sterile dressings were applied. The external fixation pins were now removed. The patient was transferred to recovery in stable condition.
[2018-06-11] MEDS ORDERED: Vancomycin Inj 1 GM/200 ML PIGGYBACK IV.SIG SCH (12:00)
[2018-06-11] MEDS ORDERED: Morphine Inj 4 MG/ML Vial ONE (12:07)
[2018-06-11] MEDS ORDERED: fentaNYL Citrate Inj 100 MCG/2 ML Ampul ONE (12:08)
[2018-06-11] MEDS ORDERED: *morphine SULFATE 4 MG/ML PERIprocedure ONLY ONE ×3 (12:24→12:50)
--- NOTE | 2018-06-11 14:09 | XR ---
EXAM DATE: 06/11/2018 2:03 PM EST AGE/SEX: 42 years / Male INDICATIONS: Open reduction internal fixation left tibial plateau. CLINICAL DATA: This is the patient's initial encounter. Patient reports that signs and symptoms have been present for 1 day and indicates a pain score of Nonresponsive. MEDICAL/SURGICAL HISTORY: Non-responsive. Non-responsive. COMPARISON: [facility] [place] /2V, 06/05/2018. . FINDINGS: There has been plate and screw fixation of complex left tibial plateau fracture with satisfactory pos itioning appearance of the hardware and good reduction of fracture fragments. Tibial plateau articula r surfaces appear congruent. CONCLUSION: Satisfactory operative appearance Electronically signed by: Gerard Langford MD 06/11/2018 2:07 PM EST
[2018-06-11] MEDS ORDERED: ceFAZolin Inj 2,000 MG in Sodium Chlor 0.9% Inj 80 ML IV.SIG SCH (17:00)
[2018-06-11] MEDS: ceFAZolin 2 GM Premix Inj 2 GM/50 ML PIGGYBACK IV.SIG SCH (17:01)
[2018-06-11] MEDS: Morphine Inj 4 MG/ML Vial IV.PUSH PRN ×2 (17:04→20:03)
[2018-06-11] MEDS: Vancomycin Inj 1,000 MG in Sodium Chlor 0.9% Inj 250 ML IV.SIG SCH (20:03)
[2018-06-11] MEDS: Enoxaparin Inj 40 MG/0.4 ML Syringe SQ SCH (23:02)
[2018-06-12] MEDS: Morphine Inj 4 MG/ML Vial IV.PUSH PRN (02:30)
[2018-06-12] MEDS: ceFAZolin 2 GM Premix Inj 2 GM/50 ML PIGGYBACK IV.SIG SCH ×3 (02:30→23:03)
[2018-06-12] MEDS: Ibuprofen 400 MG Tablet PO SCH ×3 (05:39→21:36)
[2018-06-12 05:54] LABS: Hematocrit 32.7 % (39.0-51.0); Hemoglobin 11.8 gm/dL (13.0-17.0)
[2018-06-12] MEDS: Insulin NovoLOG Aspart Correctional Sugar Inj SQ SCH ×4 (08:00→21:36)
[2018-06-12] MEDS: Calcium/Vitamin D 250/125 MG Tablet PO SCH ×3 (08:24→17:16)
[2018-06-12] MEDS: Fenofibrate 145 MG Tablet PO SCH (08:24)
[2018-06-12] MEDS: Docusate Sodium 100 MG Capsule PO SCH ×2 (08:24→21:36)
[2018-06-12] MEDS: Gabapentin 300 MG Capsule PO SCH ×3 (08:25→17:16)
[2018-06-12] MEDS: Citalopram 20 MG Tablet PO SCH (08:25)
[2018-06-12] MEDS: Vancomycin Inj 1,000 MG in Sodium Chlor 0.9% Inj 250 ML IV.SIG SCH (08:29)
[2018-06-12] MEDS: Moxifloxacin 0.5% Opth Drops 3 ML Bottle RIGHT EYE SCH ×4 (08:34→22:43)
[2018-06-12] MEDS: prednisoLONE Acetate 1% Opth Susp 5 ML Bottle RIGHT EYE SCH ×4 (08:34→22:43)
--- NOTE | 2018-06-12 09:31 | P.PNOP ---
Subjective Interval history: Pain controlled. No new complaints Physical Exam Vital signs: Vital Signs 06/11/18 12:00 06/11/18 12:15 06/11/18 12:45 Temperature 97.5 F L 97.5 F L Pulse Rate 85 87 84 Respiratory Rate 12 16 16 Blood Pressure 133/72 145/91 H 147/92 H Pulse Oximetry 92 L 93 L 96 06/11/18 15:17 06/11/18 16:00 06/11/18 19:19 Temperature 98.3 F 97.4 F L Pulse Rate 88 106 H 84 Respiratory Rate 16 16 18 Blood Pressure 150/98 H 139/92 H 164/100 H Pulse Oximetry 96 95 95 06/11/18 20:30 06/12/18 00:17 06/12/18 04:22 Temperature 98.5 F 98.5 F Pulse Rate 98 H 109 H Respiratory Rate 18 18 Blood Pressure 161/90 H 158/74 H Pulse Oximetry 94 L 92 L 06/12/18 08:00 Temperature 98.4 F Pulse Rate 99 H Respiratory Rate 18 Blood Pressure 138/78 Pulse Oximetry 93 L Intake & Output 06/11/18 06/12/18 06/12/18 18:59 06:59 18:59 Intake Total 970 / 970 1802 / 1802 Output Total 1950 / 1950 2099 925 / 925 Balance -980 / -980 -298 / -298 -925 / -925 Weight 98 kg Intake: IV 50 / 50 1082 / 1082 LR 1000 mL Inj 1,000 ML @ 80 832 / 832 mls/hr IV.CONT .[id number] RONEN Rx# :[id number] Vancomycin Inj 1,000 MG In NS 250 / 250 Inj 250 ML @ 250 mls/hr IV.SIG Q12H RONEN Rx#:[id number] Ancef 2 GM Premix Inj 2 gm In 50 / 50 50 ml @ 100 mls/hr IV.SIG Q8H RONEN Rx#:[id number] Oral 320 / 320 720 / 720 Anesthesia Amount 600 / 600 Output: Urine 1300 / 1300 Estimated Blood Loss 300 / 300 Urine Amount (Catheter) 350 / 350 2099 925 / 925 Indwelling Urethral Catheter 350 / 350 Straight 2099 925 / 925 Other: Date of Last Bowel Movement 11/11/18 11/11/18 # Bowel Movements 0 0 Narrative: Right upper extremity: Splint intact. Intact sensation of her radial ulnar median nerve distributions with good capillary refills. Left lower extremity: Examination of the left lower extremity reveals dressings that are clean with mild drainage. Knee immobilizer in place. He has intact sensation distally with active dorsiflexion and plantarflexion of the foot. He has negative Homans sign - Urinary Catheter Management Indwelling Urethral Catheter Cath placed during this visit: yes, but has since been removed by the nurse Reason for continuing: Acute urinary retention Insertion date: 06/07/18 Insertion time: 10:53 Removal date: 06/06/18 Removal time: 13:43 Straight Cath placed during this visit: yes, but has since been removed by the nurse Reason for continuing: Not indwelling catheter Insertion date: 06/12/18 Insertion time: 07:25 Removal date: 06/12/18 Removal time: 00:33 Results - Labs CBC & Chem 7: 06/12/18 05:18 06/11/18 05:09 Laboratory Results - last 24 hr 06/11/18 06/11/18 06/12/18 17:04 19:49 05:18 Hgb 11.8 L Hct 32.7 L POC Glucose 213 H 184 H 06/12/18 08:20 Hgb Hct POC Glucose 141 H - Imaging Impressions Knee X-Ray 06/11/18 00:00 CONCLUSION: Satisfactory operative appearance Assessment and Plan - Assessment and Plan 1) Right Distal Radius Fx s/p ORIF - POD 7 -maintain splint at all times -NWB to hand and wrist -ok for platform walker 2) Left Bicondylar Tibial Plateau Fx s/p Removal external fixator and open reduction internal fixation POD 1 -NWB -elevate No active leg lifts or quad set Knee immobilizer at all times Lovenox -ice case management for discharge placement Follow-up with Dr. Jones or PA in 2 weeks
--- NOTE | 2018-06-12 11:22 | P.PN ---
Subjective Interval history: Patient says right eye is comfortable. Feels there is no improvement in vision. Physical Exam Vital signs: Vital Signs 06/11/18 12:00 06/11/18 12:15 06/11/18 12:45 Temperature 97.5 F L 97.5 F L Pulse Rate 85 87 84 Respiratory Rate 12 16 16 Blood Pressure 133/72 145/91 H 147/92 H Pulse Oximetry 92 L 93 L 96 06/11/18 15:17 06/11/18 16:00 06/11/18 19:19 Temperature 98.3 F 97.4 F L Pulse Rate 88 106 H 84 Respiratory Rate 16 16 18 Blood Pressure 150/98 H 139/92 H 164/100 H Pulse Oximetry 96 95 95 06/11/18 20:30 06/12/18 00:17 06/12/18 04:22 Temperature 98.5 F 98.5 F Pulse Rate 98 H 109 H Respiratory Rate 20 18 18 Blood Pressure 161/90 H 158/74 H Pulse Oximetry 94 L 92 L 06/12/18 08:00 Temperature 98.4 F Pulse Rate 99 H Respiratory Rate 18 Blood Pressure 138/78 Pulse Oximetry 93 L Intake & Output 06/11/18 06/12/18 06/12/18 18:59 06:59 18:59 Intake Total 970 / 970 1802 / 1802 Output Total 1950 / 1950 2099 925 / 925 Balance -980 / -980 -298 / -298 -925 / -925 Weight 98 kg Intake: IV 50 / 50 1082 / 1082 LR 1000 mL Inj 1,000 ML @ 80 832 / 832 mls/hr IV.CONT .[id number] RONEN Rx# :[id number] Vancomycin Inj 1,000 MG In NS 250 / 250 Inj 250 ML @ 250 mls/hr IV.SIG Q12H RONEN Rx#:[id number] Ancef 2 GM Premix Inj 2 gm In 50 / 50 50 ml @ 100 mls/hr IV.SIG Q8H RONEN Rx#:[id number] Oral 320 / 320 720 / 720 Anesthesia Amount 600 / 600 Output: Urine 1300 / 1300 Estimated Blood Loss 300 / 300 Urine Amount (Catheter) 350 / 350 2099 925 / 925 Indwelling Urethral Catheter 350 / 350 Straight 2099 925 / 925 Other: Date of Last Bowel Movement 06/09/18 06/09/18 # Bowel Movements 0 0 - Detailed Eye Exam Comments: Va cc at near OD 20/800, OS 20/20 EOM full OU, no diplopia CVF full OS, unable OD Pupils 2-1 no APD OU IOP 17 OD Anterior exam OD - eyelid ecchymoses, conj injection and sutures intact, K clear, AC deep, pupil round, lens clear OS - normal eyelid, C/S W&Q, K clear, AC deep, pupil round, lens clear - Urinary Catheter Management Indwelling Urethral Catheter Cath placed during this visit: yes, but has since been removed by the nurse Reason for continuing: Acute urinary retention Insertion date: 06/07/18 Insertion time: 10:53 Removal date: 06/06/18 Removal time: 13:43 Straight Cath placed during this visit: yes, but has since been removed by the nurse Reason for continuing: Not indwelling catheter Insertion date: 06/12/18 Insertion time: 07:25 Removal date: 06/12/18 Removal time: 00:33 Results - Labs CBC & Chem 7: 06/12/18 05:18 06/11/18 05:09 Laboratory Results - last 24 hr 06/11/18 06/11/18 06/12/18 17:04 19:49 05:18 Hgb 11.8 L Hct 32.7 L POC Glucose 213 H 184 H 06/12/18 08:20 Hgb Hct POC Glucose 141 H - Imaging Impressions Knee X-Ray 06/11/18 00:00 CONCLUSION: Satisfactory operative appearance Assessment and Plan - Assessment (1) 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 Cont Prednisolone acetate 1% QID OD, Vigamox QID OD. Discussed poor prognosis of recovering full vision with posterior rupture. Will dilate at next visit. Needs to see Retina specialist once discharged. 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
[2018-06-12] MEDS ORDERED: ceFAZolin Inj 2,000 MG in Sodium Chlor 0.9% Inj 100 ML IV.SIG SCH (12:00)
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
[2018-06-12] MEDS: Enoxaparin Inj 40 MG/0.4 ML Syringe SQ SCH (23:23)
[2018-06-13] MEDS: ceFAZolin 2 GM Premix Inj 2 GM/50 ML PIGGYBACK IV.SIG SCH (05:30)
[2018-06-13] MEDS: Ibuprofen 400 MG Tablet PO SCH ×2 (05:30→15:48)
--- NOTE | 2018-06-13 07:01 | P.PNOP ---
Subjective Interval history: POd 2 s/p ORIF left tibial plateau POD 8 s/p ORIF right wrist doing well. states pain improving. transferring with walker Physical Exam Vital signs: Vital Signs 06/12/18 08:00 06/12/18 12:00 06/12/18 16:00 Temperature 98.4 F 97.5 F L 98.0 F Pulse Rate 99 H 99 H 86 Respiratory Rate 18 18 18 Blood Pressure 138/78 130/78 155/88 H Pulse Oximetry 93 L 92 L 95 06/12/18 20:05 06/12/18 23:36 Temperature 98.5 F 98.7 F Pulse Rate 102 H 97 H Respiratory Rate 18 18 Blood Pressure 127/73 143/77 H Pulse Oximetry 93 L 93 L Intake & Output 06/12/18 06/12/18 06/13/18 06:59 18:59 06:59 Intake Total 1802 / 1802 720 / 720 530 / 530 Output Total 2099 Balance -298 / -298 -1405 / -1405 530 / 530 Weight 98 kg 98 kg Intake: IV 1082 / 1082 50 / 50 LR 1000 mL Inj 1,000 ML @ 80 832 / 832 mls/hr IV.CONT .[id number] RONEN Rx# :[id number] Vancomycin Inj 1,000 MG In NS 250 / 250 Inj 250 ML @ 250 mls/hr IV.SIG Q12H RONEN Rx#:[id number] Ancef 2 GM Premix Inj 2 gm In 50 / 50 50 ml @ 100 mls/hr IV.SIG Q8H RONEN Rx#:[id number] Oral 720 / 720 720 / 720 480 / 480 Output: Urine Amount (Catheter) 2099 Straight 2099 Other: Date of Last Bowel Movement 06/09/18 06/09/18 06/09/18 # Bowel Movements 0 0 Narrative: RUE: +short arm splint. intact. NVI LLE: dressings clean and dry. intact. +CKS. compartments soft. full sensation and strong dorsiflexion - Urinary Catheter Management Indwelling Urethral Catheter Cath placed during this visit: yes, but has since been removed by the nurse Reason for continuing: Acute urinary retention Insertion date: 06/07/18 Insertion time: 10:53 Removal date: 06/06/18 Removal time: 13:43 Straight Cath placed during this visit: yes, but has since been removed by the nurse Reason for continuing: Not indwelling catheter Insertion date: 06/12/18 Insertion time: 21:55 Removal date: 06/12/18 Removal time: 23:05 Results - Labs CBC & Chem 7: 06/12/18 05:18 06/11/18 05:09 Laboratory Results - last 24 hr 06/12/18 06/12/18 06/12/18 08:20 12:56 17:15 POC Glucose 141 H 189 H 154 H 06/12/18 21:26 POC Glucose 165 H Assessment and Plan - Assessment and Plan 1) Right Distal Radius Fx s/p ORIF - POD 8 -maintain splint at all times -NWB to hand and wrist -ok for platform walker 2) Left Bicondylar Tibial Plateau Fx s/p Removal external fixator and open reduction internal fixation POD 2 -NWB -elevate -No active leg lifts or quad set -Knee immobilizer at all times except for PT and ROM -PROM 0-90deg -Lovenox -ice case management for discharge placement. plan for SNF. Ortho cleared for DC to SNF Follow-up with Dr. Jones or PA in 2 weeks [place] Prescription Drug Monitoring Database has been queried and verified prior to prescribing the controlled substance. Acute pain exception. This patient has normal, predicted, physiological, and time limited response to an adverse mechanical stimulus associated with surgery, trauma, or acute illness as described in my notes. There is a lack of alternative treatment options other than to include the prescribed narcotic treatment for this condition.
[2018-06-13] MEDS: Citalopram 20 MG Tablet PO SCH (08:54)
[2018-06-13] MEDS: prednisoLONE Acetate 1% Opth Susp 5 ML Bottle RIGHT EYE SCH ×2 (08:56→12:23)
[2018-06-13] MEDS: Moxifloxacin 0.5% Opth Drops 3 ML Bottle RIGHT EYE SCH ×2 (08:56→12:23)
[2018-06-13 09:32] VITALS: RESP 17
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
[2018-06-13] MEDS: Docusate Sodium 100 MG Capsule PO SCH (12:10)
[2018-06-13] MEDS: Gabapentin 300 MG Capsule PO SCH ×2 (12:11→12:22)
[2018-06-13] MEDS: Calcium/Vitamin D 250/125 MG Tablet PO SCH ×2 (12:11→12:23)
[2018-06-13] MEDS: Fenofibrate 145 MG Tablet PO SCH (12:11)
[2018-06-13] MEDS: Insulin NovoLOG Aspart Correctional Sugar Inj SQ SCH ×2 (12:13→15:48)
[2018-06-13 13:15] VITALS: TEMP 98
[2018-06-13 16:47] VITALS: BP 124/83; PULSE 91; O2SAT 95
== END 2018-06-13 16:05 ==
LOC: NEPC 23:31 → NEDA 23:57 → NEDH 06-05 04:49 → N06 06-05 09:17 → N07 06-05 09:17 → N06 06-05 16:54
PROVIDERS: ADMIT Surgery; ATTEND Surgery
PROC: ORIFTIB (2018-06-05 09:25)